=== PATIENT | male | born 1970 | race African-American/Black ===

== ENCOUNTER → 2021-01-30 | Outpatient (CLI) | payer OTHER ==
[~2021-01-30] MED LIST: CYMBALTA30 MG PO; LISINOPRIL10 MG PO; VITAMIN D325 MC1 PO
== END ==
LOC: COVVAC 10:13
PROVIDERS: ATTEND Student in an Organized Health Care Education/Training Program
DX: Z20.822 Contact with and (suspected) exposure to COVID-19 (principal)

== ENCOUNTER → 2021-02-02 | Outpatient (CLI) | payer OTHER ==
[~2021-02-02] VITALS: Ht 175.3 cm; Wt 80.7 kg
--- NOTE | 2021-02-03 18:06 | PATH ---
[facility] [address] [place] [address] PATHOLOGY RPT PROCEDURE Name: MEJIASRENEE Room #: [facility] Nesha.#: [id number] Admission: 02/02/21 Date of : 74 Discharge: Report #: [id number] Path Case #: [id number] [facility] Accession Number: [id number] . 01 Material submitted: . sigmoid colon - SIGMOID POLYPS X2. Modifiers: X2 . 01 Clinical history: . COLONOSCOPY/SCREENING COLON POLYPS . 02 Diagnosis: Polyps x2, sigmoid colon polyp, endoscopic biopsy: - One fragment showing tubular adenoma without high-grade dysplasia. - Second fragment showing hyperplastic polyp without dysplasia. ([facility]; 02/03/2021) QMS 02/03/2021 1432 Local . 02 Electronically signed: . Lisa Joy MD, Pathologist NPI- [id number] . 01 Gross description: . The specimen is submitted in formalin, labeled "Renee Mejias, sigmoid polyp x 2". Received are 2 segments of pale romero tissue ranging in size from 0.3 to 0.4 cm in maximum dimensions. The specimen is submitted in cassette A1. ([facility]; 02/02/2021) NRI/NRI 02/02/2021 1343 Local . 02 Pathologist provided ICD-10: D12.5, K63.5 . 02 CPT . 107182 Specimen Comment: A courtesy copy of this report has been sent to [phone] Specimen Comment: [id number] Specimen Comment: Report sent to / DR MIRANDA Performed at: [address], [place], [place] [id number] MD Junaid Xiao MD Phone: [phone] Performed at: [address] [id number] MD Lisa Joy MD Phone: [phone]
== END | disposition home or self-care (01) ==
LOC: GI 01-19 10:08
PROVIDERS: ATTEND Internal Medicine Gastroenterology
DX: Z12.11 Encounter for screening for malignant neoplasm of colon (principal); D12.5 Benign neoplasm of sigmoid colon; I10 Essential (primary) hypertension; F32.9 Major depressive disorder, single episode, unspecified; F41.9 Anxiety disorder, unspecified; Z98.890 Other specified postprocedural states; Z79.899 Other long term (current) drug therapy
CPT/HCPCS: 62110; 62900